=== PATIENT | female | born 1995 | race Caucasian/White ===

== ENCOUNTER 2016-09-27 09:28 | Emergency (ER) | payer OTHER ==
[~2016-09-27] VITALS: Ht 160 cm; Wt 78.1 kg
[2016-09-27 09:51] VITALS: TEMP 37.1; Ht 160 cm; Wt 78.1 kg
[2016-09-27] MEDS ORDERED: PRENTAB26 PO (10:31)
--- NOTE | 2016-09-27 11:17 | EMERGENCY ROOM VISIT NOTE ---
History Report prepared by Genoveva: Mirna Griggs Under the Supervision of: Dr. Edith Abebe M.D. First contact with patient: 10:36 Chief Complaint: RECTAL BLEEDING Stated Complaint: BLEEDING OUT OF ANUS Nursing Triage Summary: Triage note: pt reports she is 13 weeks preg. Pt reports when she went to the bathroom at 0900 today "there was blood in the water and i checked and i wasn't bleeding from my vagina so when i wiped my ass there was blood." pt denies any abd pain. History of Present Illness The patient is a 13 week 21 year old female who presents to the Emergency Room with complaints of an episode of rectal bleeding that began this morning. The patient notes that she had a solid bowel movement this morning and noticed blood on the toilet paper. She states that the blood was not coming from her vagina. She has not been constipated recently. She notes that she has been having some spasms in her back recently. The patient has been following up with [facility] for her but has not had an ultrasound yet. This is her first . Source of History: patient Onset: this morning Position: other (rectum) Timing: other (episode) Note: Other symptoms: back spasms Review of Systems See HPI for pertinent positives & negatives. A total of 10 systems reviewed and were otherwise negative. Past Medical & Surgical Medical Problems: (1) Altered mental status Family History Cancer Diabetes mellitus Gallbladder disease Heart disease Seizures Social History Smoking Status: Current Every Day Smoker Alcohol Use: none Drug Use: heroin, marijuana, other Marital Status: in relationship Housing Status: lives with family Occupation Status: employed Current/Historical Medications Scheduled Multivit/Min/Iron/Fol Ac/Pren ( Vitamin), 1 TAB PO DAILY Allergies Coded Allergies: BEE STING (Verified Allergy, Unknown, UNKNOWN, 09/27/16) Physical Exam Vital Signs Date Time Temp Pulse Resp B/P Pulse Ox O2 Delivery O2 Flow Rate FiO2 09/27/16 13:06 97 18 127/79 99 Room Air 09/27/16 11:53 84 16 99/62 98 Room Air 09/27/16 09:51 37.1 84 18 122/84 100 Room Air Physical Exam Vital signs reviewed. General: Well-appearing 21 year old female, in no significant distress. HEENT: No scleral icterus, PERRLA, neck supple. Atraumatic. Cardiovascular: Regular rate and rhythm, no extra sounds. Pulmonary: Clear to auscultation bilaterally, normal work of breathing. Abdomen: Soft, nontender, nondistended, positive bowel sounds. Rectal: Trace guaiac positive stool. Normal mucosa. Pelvic: Normal external genitalia, no bleeding, minimal amount of whitish discharge, no cervical motion tenderness. Musculoskeletal: Atraumatic, no peripheral edema. Neurologic: Patient awake alert and oriented x 3 Skin: Warm, dry, no rash Medical Decision & Procedures Laboratory Results 09/27/16 11:40 Red Blood Count 4.40, Mean Corpuscular Volume 83.6, Mean Corpuscular Hemoglobin 28.9, Mean Corpuscular Hemoglobin Concent 34.5, Mean Platelet Volume 9.5, Neutrophils (%) (Auto) 75.4, Lymphocytes (%) (Auto) 19.1, Monocytes (%) (Auto) 4.4, Eosinophils (%) (Auto) 0.9, Basophils (%) (Auto) 0.1, Neutrophils # (Auto) 10.18, Lymphocytes # (Auto) 2.58, Monocytes # (Auto) 0.59, Eosinophils # (Auto) 0.12, Basophils # (Auto) 0.02 09/27/16 11:40 Test 09/27/16 10:00 09/27/16 11:40 09/27/16 13:02 Urine Color YELLOW Urine Appearance CLEAR (CLEAR) Urine pH 6.0 (4.5-7.5) Urine Specific [place] 1.014 (1.000-1.030) Urine Protein NEG (NEG) Urine Glucose (UA) NEG (NEG) Urine Ketones NEG (NEG) Urine Occult Blood NEG (NEG) Urine Nitrite NEG (NEG) Urine Bilirubin NEG (NEG) Urine Urobilinogen NEG (NEG) Urine Leukocyte Esterase NEG (NEG) White Blood Count 13.51 K/uL (4.8-10.8) Red Blood Count 4.40 M/uL (4.2-5.4) Hemoglobin 12.7 g/dL (12.0-16.0) Hematocrit 36.8 % (37-47) Mean Corpuscular Volume 83.6 fL (80-100) Mean Corpuscular Hemoglobin 28.9 pg (25-34) Mean Corpuscular Hemoglobin Concent 34.5 g/dl (32-36) Platelet Count 267 K/uL (130-400) Mean Platelet Volume 9.5 fL (7.4-10.4) Neutrophils (%) (Auto) 75.4 % Lymphocytes (%) (Auto) 19.1 % Monocytes (%) (Auto) 4.4 % Eosinophils (%) (Auto) 0.9 % Basophils (%) (Auto) 0.1 % Neutrophils # (Auto) 10.18 K/uL (1.4-6.5) Lymphocytes # (Auto) 2.58 K/uL (1.2-3.4) Monocytes # (Auto) 0.59 K/uL (0.11-0.59) Eosinophils # (Auto) 0.12 K/uL (0-0.5) Basophils # (Auto) 0.02 K/uL (0-0.2) RDW Standard Deviation 40.0 fL (36.4-46.3) RDW Coefficient of Variation 13.2 % (11.5-14.5) Immature Granulocyte % (Auto) 0.1 % Immature Granulocyte # (Auto) 0.02 K/uL (0.00-0.02) Anion Gap 7.0 mmol/L (3-11) Est Creatinine Clear Calc Drug Dose 229.7 ml/min Estimated GFR () > 150.0 Estimated GFR (Non- > 150.0 BUN/Creatinine Ratio 12.4 (10-20) Calcium Level 8.9 mg/dl (8.5-10.1) Total Bilirubin 0.4 mg/dl (0.2-1) Direct Bilirubin < 0.1 mg/dl (0-0.2) Aspartate Amino Transf (AST/SGOT) 12 U/L (15-37) Alanine Aminotransferase (ALT/SGPT) 17 U/L (12-78) Alkaline Phosphatase 41 U/L (45-117) Total Protein 6.8 gm/dl (6.4-8.2) Albumin 3.5 gm/dl (3.4-5.0) Human Chorionic Gonadotropin, Quant 52562 mIU/mL Chlamydia trachomatis RNA NOT DETECTED (NOT DETECTED) Neisseria gonorrhoeae RNA NOT DETECTED (NOT DETECTED) Date/Time Source Procedure Growth Status 09/27/16 13:02 Vaginal Swab Trichomonas Preparation - Final Complete Laboratory results per my review. ED Course 1105: The patient was evaluated in room B10. A complete history and physical examination was performed. 1256: Upon reevaluation, the patient was resting comfortably. I discussed findings with the patient. She verbalized agreement of the treatment plan. The patient was discharged home. Medical Decision Differential diagnosis: Etiologies such as diverticulosis, AVM, coagulopathy, colitis, inflammatory bowel disease, malignancy, Lupe-Bowen tear, esophagitis, peptic ulcer disease , variceal bleed, gastritis, epistaxis, fissure, hemorrhoids, as well as others were entertained. This patient was evaluated and appeared to be in no significant distress. IV access was obtained and laboratory work was drawn. Patient's H&H is stable. Rectal exam was performed and reveals trace guaiac blood with no gross blood. There is no melanotic stool. Rectal mucosa appears to be normal. Pelvic exam was performed and reveals no bleeding, there is a moderate amount of a clear whitish discharge. Cultures were obtained and sent. Patient was informed of the findings. At this time I suspect there is some minor rectal trauma after a bowel movement. I do not suspect an acute GI bleed. There is no evidence that this is vaginal bleeding. Patient will follow-up with her [facility] this week. She will return to the ER for worsening of symptoms or any medical concerns. Impression Primary Impression: Rectal bleeding Scribe Attestation The scribe's documentation has been prepared under my direction and personally reviewed by me in its entirety. I confirm that the note above accurately reflects all work, treatment, procedures, and medical decision making performed by me. Departure Information Dispostion Home / Self-Care Referrals Janice Jacobo PA-C (PCP) Patient Instructions My [facility] Additional Instructions Diagnosis: Rectal bleeding Drink plenty of fluids. Eat a high fiber diet, drink plenty of fluids. Follow up with OBGYN this week for reevaluation. Return to the ED for worsening of symptoms or any medical concerns.
[2016-09-27 12:07] LABS: BASO % 0.1 %; BASO ABS # 0.02 K/uL (0-0.2); COMPLETE YES; EOS % 0.9 %; HEMATOCRIT 36.8 % (37-47); IG% 0.1 %; LYMPH % 19.1 %; LYMPH ABS # 2.58 K/uL (1.2-3.4); MEAN CELL VOLUME 83.6 fL (80-100); MEAN CORPUSCULAR HEMOGLOBIN 28.9 pg (25-34); MEAN CORPUSCULAR HGB CONC 34.5 g/dl (32-36); MEAN PLATELET VOLUME 9.5 fL (7.4-10.4); MONO % 4.4 %; NEUT % 75.4 %; PLATELET COUNT 267 K/uL (130-400); WHITE BLOOD COUNT 13.51 K/uL (4.8-10.8)
[2016-09-27 12:18] LABS: URINE APPEARANCE CLEAR (CLEAR); URINE BILIRUBIN NEG (NEG); URINE COLOR YELLOW; URINE NITRITE NEG (NEG); URINE SPECIFIC GRAVITY 1.014 (1.000-1.030); UROBILINOGEN NEG (NEG); ZZUR CULT IF INDIC CLEAN CATCH NO
[2016-09-27 12:24] LABS: ALT/SGPT 17 U/L (12-78); BLOOD UREA NITROGEN 5 mg/dl (7-18); BUN/CREATININE RATIO 12.4 (10-20); CALCIUM 8.9 mg/dl (8.5-10.1); CARBON DIOXIDE 25 mmol/L (21-32); CHLORIDE 106 mmol/L (98-107); CREATININE 0.38 mg/dl (0.60-1.20); GLUCOSE 74 mg/dl (70-99); POTASSIUM 3.9 mmol/L (3.5-5.1); SODIUM 138 mmol/L (136-145)
[2016-09-27 12:27] LABS: ALKALINE PHOSPHATASE 41 U/L (45-117); AST/SGOT 12 U/L (15-37)
[2016-09-27 12:27] LABS: MANUAL MICROSCOPIC REQUIRED? NO; REVIEW REQ? NO
[2016-09-27 13:06] VITALS: BP 127/79; PULSE 97; O2SAT 99
[2016-09-29 01:09] LABS: CHLAMYDIA TRACH RNA*** NOT DETECTED (NOT DETECTED); GC (NEIS GONORRHOEAE)RNA** NOT DETECTED (NOT DETECTED)
[2017-04-10] MEDS ORDERED: MTR600X PO (09:33)
[2017-04-10] MEDS ORDERED: MISC-1040 (09:33)
== END 2016-09-27 13:11 | disposition home or self-care (01) ==
LOC: C.EDB 09:33
DX: K62.5 Hemorrhage of anus and rectum (principal); F17.200 Nicotine dependence, unspecified, uncomplicated; Z83.3 Family history of diabetes mellitus; Z83.79 Family history of other diseases of the digestive system; Z82.49 Family history of ischemic heart disease and other diseases of the circulatory system; Z82.0 Family history of epilepsy and other diseases of the nervous system

== ENCOUNTER 2017-03-19 04:14 | Outpatient (CLI) | payer OTHER ==
[~2017-03-19] VITALS: Ht 160 cm; Wt 90.0 kg
[~2017-03-19 04:14] MED LIST: PRENTAB26 PO
[2017-03-19 05:53] VITALS: Ht 160 cm; Wt 90.0 kg
--- NOTE | 2017-03-19 06:00 | Discharge Instructions ---
Discharge Instructions Date of Service Mar 19, 2017. Admission Reason for Admission: Labor Check Discharge Discharge Diagnosis / Problem: labor check Discharge Goals Goal(s): Continuing OB care Activity Recommendations Activity Limitations: as noted below SPECIAL CARE INSTRUCTIONS: Call Doctor if: * Regular contractions every 5 minutes or greater than contractions in one hour. * Bleeding * Water breaks or is leaking * Decreased movement * Fever >100.4 degrees F * Pain not relieved by routine measures or pain medication ordered. FOLLOW UP VISIT: Return to Labor and Delivery on for /call for appointment time . Follow-up Visit with: When: . Current Hospital Diet Patient's current hospital diet: Discharge Diet Recommended Diet: Regular Diet Pending Studies Studies pending at discharge: no Medical Emergencies . Who to Call and When: Medical Emergencies: If at any time you feel your situation is an emergency, please call 911 immediately. . Non-Emergent Contact Non-Emergency issues call your: Specialist . . "Provider Documentation" section prepared by Viral Montoya. . VTE Core Measure Inpt VTE Proph given/why not?: Treatment not indicated
--- NOTE | 2017-03-19 06:07 | Progress Note ---
Progress Note Date of Service Mar 19, 2017. Progress Note pt is a 21 yo G1 at 37+ weeks who presents for labor check On arrival to L&d she has the ff complaints 1; back pain 2. loss of mucous plug x1 weeks 3. headache 4. Dec FM NST is CAT1 UA; neg for protein, leuks or nitrites VE 2/25% effaced/ anterior Ctx; Minimal Pt now feels movement and is pleased Plan d/c home with instructions Tylenol for backache Reassured ater feeling movement and reactive NST
[2017-04-10] MEDS ORDERED: MISC-1040 (09:33)
[2017-04-10] MEDS ORDERED: MTR600X PO (09:33)
== END 2017-03-19 05:52 | disposition home or self-care (01) ==
LOC: C.OPB 04:14 → C.LD 04:14 → C.OPB 05:52
PROVIDERS: ATTEND Obstetrics & Gynecology
DX: O36.8130 Decreased fetal movements, third trimester, not applicable or unspecified (principal); O99.89 Other specified diseases and conditions complicating pregnancy, childbirth and the puerperium; M54.9 Dorsalgia, unspecified; R51 Headache; Z3A.37 37 weeks gestation of pregnancy

== ENCOUNTER 2017-04-08 09:48 | Inpatient (IN) | payer OTHER ==
[~2017-04-08] VITALS: Ht 160 cm; Wt 90.5 kg
[2017-04-08] MEDS ORDERED: LACTATED RINGER'S 1000ML 1,000 ML IV PRN (10:37)
--- NOTE | 2017-04-08 10:46 | Progress Note ---
Progress Note Date of Service Apr 08, 2017. Progress Note Admit Note 21 F P0000 at 40.2 weeks seen to r/o labor with contractions starting this AM. Cervix 3/70/-2/vertes/intact/posterior. EFW 8.5 lbs. FHT Cat1. GBS is negative. Will admit in labor.
[2017-04-08 11:06] LABS: HEMATOCRIT 37.3 % (37-47); MEAN CELL VOLUME 88.6 fL (80-100); MEAN CORPUSCULAR HEMOGLOBIN 30.6 pg (25-34); MEAN CORPUSCULAR HGB CONC 34.6 g/dl (32-36); PLATELET COUNT 214 K/uL (130-400); RED BLOOD COUNT 4.21 M/uL (4.2-5.4); WHITE BLOOD COUNT 17.79 K/uL (4.8-10.8)
[2017-04-08 11:32] VITALS: Ht 160 cm; Wt 90.5 kg
[2017-04-08] MEDS ORDERED: LACTATED RINGER'S 1000ML 500 ML IV PRN ×2 (12:17→15:29)
[2017-04-08] MEDS ORDERED: OXYTOCIN 30 UNITS/500ML NSS IV PRN ×2 (12:30→22:15)
[2017-04-08] MEDS ORDERED: BUTORPHANOL TARTRATE 1 MG/ML VIAL IV ONE (12:45)
[2017-04-08] MEDS ORDERED: INFLUENZA ADMINISTRATION CHARGE ONE (13:45)
[2017-04-08] MEDS ORDERED: INFLUENZA VIRUS QUAD VACCINE 0.5 ML SYR IM. ONE (13:45)
[2017-04-08] MEDS ORDERED: FENTANYL CITRATE INJ 50 MCG/1 ML 2 ML VIAL ONE (14:22)
[2017-04-08] MEDS ORDERED: FENTANYL 2MCG/ML ROPIV 1.25MG/ML 100ML BAG EPI ONE (14:22)
[2017-04-08] MEDS ORDERED: BUPIVACAINE 0.25% 30 ML VIAL ONE (14:22)
[2017-04-08] MEDS ORDERED: EpHEDrine SULFATE INJ 50 MG/ML AMP ONE (14:22)
[2017-04-08] MEDS: LACTATED RINGER'S 1000ML 1,000 ML IV SCH ×2 (15:04→19:35)
[2017-04-08] MEDS ORDERED: NALOXONE HCL INJ 1 MG in SODIUM CHLORIDE 0.9% 1000ML 1,000 ML IV PRN ×4 (15:29)
[2017-04-08] MEDS ORDERED: NALBUPHINE HCL INJ 10 MG/ML AMP IV PRN (15:30)
[2017-04-08] MEDS ORDERED: PROMETHAZINE HCL INJ 25 MG in SODIUM CHLORIDE 0.9% 50ML 50 ML IV PRN (15:30)
[2017-04-08] MEDS ORDERED: EpHEDrine SULFATE INJ 50 MG/ML AMP IV PRN (15:30)
[2017-04-08] MEDS ORDERED: FENTANYL 2MCG/ML ROPIV 1.25MG/ML 100ML BAG EPI PRN (15:30)
[2017-04-08] MEDS ORDERED: NALOXONE HCL INJ 0.4 MG/1 ML VIAL/CARP IV PRN (15:30)
[2017-04-08] MEDS ORDERED: DiphenhydrAMINE HCL 50 MG/ML VIAL IV PRN (15:30)
[2017-04-08] MEDS ORDERED: ONDANSETRON INJ 2 MG/ML 2 ML VIAL IV PRN (15:30)
[2017-04-08] MEDS ORDERED: LACTATED RINGER'S 1000ML 1,000 ML IV SCH (22:11)
[2017-04-08] MEDS ORDERED: LANOLIN OINT EXT PRN ×2 (22:15)
[2017-04-08] MEDS ORDERED: ACETAMINOPHEN 325 MG TAB PO PRN (22:15)
[2017-04-08] MEDS ORDERED: BENZOCAINE 20% AER SPR 82.5 GM CAN EXT PRN (22:15)
[2017-04-08] MEDS ORDERED: MEASLES, MUMPS & RUBELLA VIRUS VIAL SQ. ONE (22:15)
[2017-04-08] MEDS ORDERED: HYDROCORTISONE ACETATE 25 MG SUPP PR PRN (22:15)
[2017-04-08] MEDS ORDERED: SUPERCREAM 0.870 % 15GM JAR EXT PRN (22:15)
[2017-04-08] MEDS ORDERED: DIPHTHERIA/TETANUS/PERTUSSIS 0.5 ML SYR/VIAL IM. ONE (22:15)
--- NOTE | 2017-04-08 22:17 | Vaginal Delivery Summary ---
Vaginal Delivery Summary Delivery Note live female JESSE over intact perineum with Apgars 8/9 with nuchal cord x1 reduced at delivery. Delayed cord clamping followed by cord blood and spontaneous delivery of intact perineum. No tears. EBL 200 ml. Final sponge and instrument count are correct. Mom and baby stable.
[2017-04-09] MEDS: IBUPROFEN 600 MG TAB PO PRN ×5 (00:16→21:41)
[2017-04-09 01:00] VITALS: BP 119/73; PULSE 77; TEMP 37.1
[2017-04-09 04:20] VITALS: BP 115/77; PULSE 69; TEMP 36.5
--- NOTE | 2017-04-09 05:14 | Anesthesia Procedure Note ---
Anesthesia Epidural Removal Nt Date & Time Apr 09, 2017 at 05:14 Vital Signs Pain Intensity: 3.0 Vital Signs Past 12 Hours Date Time Temp Pulse Resp B/P (MAP) Pulse Ox O2 Delivery O2 Flow Rate FiO2 04/09/17 04:20 36.5 69 18 115/77 (90) Room Air 04/09/17 01:00 Room Air 04/09/17 01:00 37.1 77 18 119/73 (88) Room Air Notes Mental Status: alert / awake / arousable, participated in evaluation Nausea / Vomiting: adequately controlled Pain: adequately controlled Airway Patency, RR, SpO2: stable & adequate BP & HR: stable & adequate Hydration State: stable & adequate Neuraxial Anesthesia: was administered Anesthetic Complications: no major complications apparent, pt satisfied with anesthetic care Epidural: removed without complications, with tip intact
[2017-04-09 06:46] LABS: HEMATOCRIT 33.3 % (37-47)
[2017-04-09] MEDS: DOCUSATE SODIUM 100 MG CAP PO SCH ×2 (07:47→20:17)
[2017-04-09] MEDS: PRENATAL VITAMIN TAB PO SCH (07:47)
[2017-04-09] MEDS: FERROUS SULFATE 325 MG TAB PO SCH (07:47)
[2017-04-09 08:00] VITALS: BP 121/78; PULSE 78; TEMP 36.4
[2017-04-09 12:45] VITALS: BP 124/81; PULSE 72; TEMP 36.7
[2017-04-09 15:30] VITALS: BP 113/76; PULSE 72; TEMP 36.7
[2017-04-09] MEDS ORDERED: ACETAMINOPHEN/CODEINE 300/30MG TAB PO PRN (16:15)
[2017-04-09 19:00] VITALS: BP 137/86; PULSE 71; TEMP 36.4
[2017-04-09] MEDS ORDERED: BISACODYL 5 MG TABEC PO SCH (20:00)
[2017-04-10 00:01] VITALS: BP 112/76; PULSE 79; TEMP 36.6
[2017-04-10] MEDS: IBUPROFEN 600 MG TAB PO PRN ×2 (01:30→08:13)
[2017-04-10] MEDS ORDERED: BISACODYL 10 MG SUPP PR PRN (07:00)
[2017-04-10 07:38] VITALS: BP 144/81; PULSE 62; TEMP 36.6; O2SAT 97
[2017-04-10] MEDS: FERROUS SULFATE 325 MG TAB PO SCH (08:11)
[2017-04-10] MEDS: DOCUSATE SODIUM 100 MG CAP PO SCH (08:11)
[2017-04-10] MEDS: PRENATAL VITAMIN TAB PO SCH (08:11)
[2017-04-10 08:25] VITALS: BP 123/83; PULSE 66; TEMP 36.6; O2SAT 99
[2017-04-10] MEDS ORDERED: MTR600X PO (09:33)
[2017-04-10] MEDS ORDERED: MISC-1040 (09:33)
--- NOTE | 2017-04-10 09:35 | Discharge Instructions ---
Discharge Instructions Date of Service Apr 10, 2017. Admission Reason for Admission: Term In Labor Discharge Discharge Diagnosis / Problem: term delivered Discharge Goals Goal(s): Routine recovery after delivery, Routine recovery after surgery Activity Recommendations Activity Limitations: as noted below Lifting Limitations: no more than 10 pounds Exercise/Sports Limitations: gradually increase as tolerated May Resume Sexual Activity: after follow-up appointment Shower/Bathe: no limitations Driving or Machine Use: resume 3 days after discharge . Instructions / Follow-Up Instructions / Follow-Up ACTIVITY RECOMMENDATIONS: * Gradual return to full activity over the next 2-3 weeks. * No lifting - nothing heavier than baby over the next 2-3 weeks. * Do not engage in vigorous exercise, sexual activity or sports until cleared by your physician. * Do not drive or operate any motorized equipment until cleared by your physician. * You may shower/bathe daily. BREAST CARE: If you are not breast feeding: * Wear a supportive bra 24 hours a day for one to two weeks. * Avoid stimulating your breasts and nipples as much as possible during the first few weeks after delivery. * When taking a shower, have the warm water hit your back, not breasts. * When your breasts feel full, apply ice packs. Usually three to four times a day helps ease the discomfort. * Take a mild pain medication (Tylenol/Motrin) when you are uncomfortable. If breast feeding: * Use breast milk to lubricate nipples. Lansinoh cream may be used for sore nipples. You do not need to remove cream prior to breast feeding. If using a different brand of cream, check the label for directions regarding removal of cream prior to nursing. * Wear a supportive bra. * If having problems with breasts or breast feeding, call a hearing consultant or your health care provider. EPISIOTOMY CARE: After delivery, if you have an episiotomy (stitches), the following steps will ease discomfort and aid healing. * For the first 24 hours after delivery, place ice packs next to your episiotomy to help reduce swelling. * After the first 24 hour-period, sitz baths, either portable or in the tub, are suggested. A shower with a shower arm sprayed over the episiotomy may be comforting. * Cris care should be done after each voiding and bowel movement. Squirt warm water from a plastic bottle over the perineum (region of the body between the anus and urinary opening) and pat dry. * Use Dermoplast to ease discomfort. Shake container. [place] directly over the episiotomy. * Place a Tucks on a clean sanitary pad next to your episiotomy. OVER THE COUNTER MEDICATION: * For discomfort or pain, you may use Acetaminophen (Tylenol), Ibuprofen (Advil ), or Naproxen (Aleve) following the package directions. * For constipation you may use Colace following the package directions. SPECIAL CARE INSTRUCTIONS: When you are discharged from the hospital, it is important for you to follow the instructions listed below: * During the first week at home, you should be able to care for yourself and your baby. In addition, the usual light household activities are encouraged. * Limit your activities to the way you feel. Do not try to clean the house or move furniture. Be sensible. * If you actively engage in sports and have done so up until the time of your delivery, you may resume these activities as soon as you feel able. This may take up to one month or even longer. Use good judgment. * Continue to take your vitamins for at least six weeks after the of your baby. * Your diet need not be limited unless you were on a special diet before your delivery. Breast-feeding mothers need around 2500 calories per day and at least 64-80 ounces of fluid per day (8 to 10 glasses). * You should eat foods from the four major food groups. Crash diets or fad diets are to be avoided. Eating lean meats, fresh fruits and vegetables, low-fat dairy products, high fiber foods and a regular exercise program, will help you get back to your pre- weight without putting your health at risk. * Constipation is sometimes a problem after delivery. Take a mild laxative as needed. If breast feeding, Milk of Magnesia is acceptable to use. You may use a suppository or Fleets enema if no episiotomy. * A daily shower or tub bath is suggested. Be sure to thoroughly and gently dry the perineum. * A bloody vaginal discharge will usually continue until around four weeks post . A small amount of bleeding may continue for as long as six weeks. Vaginal discharge changes from the bright red bleeding after delivery to pink then brownish and finally yellowish-pink before becoming white and disappearing. * Bleeding may increase with activity. Your first period may come in 4-8 weeks. If you are breast feeding, your period may be delayed even longer. * Lewis (sex) can begin whenever both you and your partner feel comfortable and do not have any form of genital infection. It is recommended that you wait until after your return appointment and discuss with your physician. If you have questions, please talk to your health care practitioner. A condom should be used to prevent infection and . * Foreplay, gentle intercourse and lubrication is very important the first several times to prevent pain. A water-based lubricant such as K-Y jelly or Astroglide may be used. * Tampons may be used six weeks after delivery. * Douching should be avoided for 6 weeks after delivery. * If you have RH negative blood and your baby is RH positive, you will receive RHOGAM by injection prior to discharge. The nurse will give you a card to keep with you that has the date and place that you received RHOGAM after delivery. * During your care, you had a Rubella screen done to check for the presence of rubella antibodies in your blood. If your test was negative, you will receive a Rubella vaccine prior to discharge. This vaccine may cause a fever, soreness at the injection site and flu-like symptoms. If these symptoms persist, notify your health care practitioner. is not advised for three months after a Rubella vaccine. There is a higher chance of having a baby with defects if conceived within three months of getting the vaccine. * If you were discharged 24 hours from delivery or before 48 hours: Visiting nurses will come to your home 48 hours after discharge to assess you and your baby. The visiting nurse will meet with you while you are in the hospital to arrange a time and get directions to your home. * Verbalizes understanding of car seat law as reviewed with patient nursing. * Car Seat hand-out given and reviewed with patient by nursing. * Shaken baby information reviewed with patient by nursing. Call you doctor if: * Heavy bleeding (saturating several pads an hour) or passing clots the size of your fist. * A fever >101 degrees F (38.3 degrees C) on two occasions four hours apart and/or chills. * Unusual pain in the pelvic or vaginal areas. * "Baby Blues" lasting longer than two weeks. If you have any questions or concerns, call your health care practitioner at . FOLLOW-UP VISIT: * Please call the office at to schedule a 6 week examination. It is important you keep this appointment. * It is important for you to make arrangements for either yearly or twice yearly check-ups thereafter. Current Hospital Diet Patient's current hospital diet: Regular OB Diet Discharge Diet Recommended Diet: Regular OB Diet Pending Studies Studies pending at discharge: no Medical Emergencies . Who to Call and When: Medical Emergencies: If at any time you feel your situation is an emergency, please call 911 immediately. . Non-Emergent Contact Non-Emergency issues call your: Primary Care Provider . . "Provider Documentation" section prepared by Pedro Ramirez. . VTE Core Measure Inpt VTE Proph given/why not?: Treatment not indicated
--- NOTE | 2017-04-10 09:37 | OB/GYN Progress Note ---
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 Subjective conversation w/ patient, physical exam Ambulation: ambulating normally Voiding: no voiding problems Diet Tolerance: Regular Diet Lochia: Small Feeding Type: Breast Feeding Objective Vital Signs Date Time Temp Pulse Resp B/P (MAP) Pulse Ox O2 Delivery O2 Flow Rate FiO2 04/10/17 08:25 36.6 66 18 123/83 (96) 99 Room Air 04/10/17 08:25 Room Air 04/10/17 07:38 36.6 62 20 144/81 (102) 97 Room Air 04/10/17 00:01 36.6 79 18 112/76 (88) Room Air 04/10/17 00:01 Room Air 04/09/17 19:00 36.4 71 20 137/86 (103) Room Air 04/09/17 15:30 36.7 72 20 113/76 (88) Room Air 04/09/17 15:30 Room Air 04/09/17 12:45 36.7 72 20 124/81 (95) Room Air Physical Exam General Appearance: WELL-APPEARING, NO APPARENT DISTRESS Abdomen: non tender, soft, no organomegaly Fundus: Firm Extremities: non-tender, normal inspection, no pedal edema Assessment and Plan Post- Day Number: 2 Continue Routine Care: discharged
[2017-04-10 10:30] VITALS: BP_DIAS 83; PULSE 66; TEMP 36.6
== END 2017-04-10 11:28 | disposition home or self-care (01) | DRG 775 ==
LOC: C.OPB 09:48 → C.LD 09:49 → C.OPB 10:40 → C.LD 10:40 → C.OBG 04-09 00:44
PROVIDERS: ADMIT Obstetrics & Gynecology; ATTEND Obstetrics & Gynecology
PROC: 10903ZC Drainage of Amniotic Fluid, Therapeutic from Products of Conception, Percutaneous Approach (ICD-10-PCS; principal; 2017-04-08)
PROC: 10E0XZZ Delivery of Products of Conception, External Approach (ICD-10-PCS; principal; 2017-04-08)
DX: O69.81X0 Labor and delivery complicated by cord around neck, without compression, not applicable or unspecified (principal); Z3A.40 40 weeks gestation of pregnancy; Z37.0 Single live birth